=== PATIENT | male | born 1950 | race Caucasian/White ===

== ENCOUNTER 2018-08-08 08:15 | Day surgery (SDC) | payer MEDICARE ==
[~2018-08-08] VITALS: Ht 172.7 cm; Wt 142.0 kg
[~2018-08-08 08:15] MED LIST: ATOR20 PO; DIGO.25 PO; FINA5 PO; FISH OIL 1,0001 EAC1 PO; HYDCHL25 PO; METF500C PO; VERA180ER PO; WARF7.5 PO
--- NOTE | 2018-08-08 10:02 | NUR ---
Ambulatory in Day Surgery History, Chart, Medications and Allergies reviewed before start of procedure.Lungs clear T/O to Auscultation. Patient confirms NPO status and agrees with scheduled surgery. Patient States Post-Procedure ride home has been arranged.
--- NOTE | 2018-08-08 15:04 | NUR ---
Patient up to Ambulate independently. Gait steady. Discharge instructions reviewed with patient. Patient verbalizes understanding. Copy given to patient to take home. Patient States Post-Procedure ride home has been arranged. Discharged via wheelchair to private car for ride home.
== END 2018-08-08 22:50 | disposition home or self-care (01) ==
LOC: ORSCMMR 08:15 → ORD 10:00 → ORSCMMR 22:50
PROVIDERS: Surgery
PROC: 0YU50JZ Supplement Right Inguinal Region with Synthetic Substitute, Open Approach (ICD-10-PCS; principal; 2018-08-08 10:00)
DX: K40.30 Unilateral inguinal hernia, with obstruction, without gangrene, not specified as recurrent (principal); I10 Essential (primary) hypertension; I48.91 Unspecified atrial fibrillation; Z79.01 Long term (current) use of anticoagulants; E11.9 Type 2 diabetes mellitus without complications; E66.01 Morbid (severe) obesity due to excess calories; Z68.42 Body mass index [BMI] 45.0-49.9, adult; Z79.899 Other long term (current) drug therapy
CPT/HCPCS: 82947; C1781; J0690; J1100; J1885; J2370; J2405; J2710; J3010; J7120

== ENCOUNTER 2021-04-20 07:14 | Day surgery (SDC) | payer MEDICARE ==
[~2021-04-20] VITALS: Ht 175.3 cm; Wt 128.7 kg
[~2021-04-20 07:14] MED LIST changes: +TRULICITY0.75 MG/01 SC; +VASCEPA1 G1 PO
--- NOTE | 2021-04-20 07:59 | NUR ---
Ambulatory in Day SurgeryBair Paws warming gown applied. Surgical site prepped with 2% Chlorhexidine cloth wipe. Patient states colon prep results clear. History, Chart, Medications and Allergies reviewed before start of procedure.Lungs clear T/O to Auscultation. Patient confirms NPO status and agrees with scheduled surgery. Pre-Op teaching done. Pt verbalizes understanding. Patient States Post-Procedure ride home has been arranged.
--- NOTE | 2021-04-20 08:34 | NUR ---
04/20/21 0834 Mirtha Salmeron HISTORY,CHART, MEDICATIONS AND ALLERGIES REVIEWED BEFORE START OF PROCEDURE. PATIENT CONFIRMS NPO STATUS AND AGREES WITH SCHEDULED PROCEDURE. 3-LEAD EKG REVIEWED WITH PHYSICIAN PRIOR TO START OF PROCEDURE. MONITOR INTACT WITH CONTINUOUS PULSE OXIMETRY AND INTERMITTENT BP. SUPPLEMENTAL O2 TO BE TITRATED THROUGHOUT PROCEDURE TO MAINTAIN O2 SATURATION ABOVE 90%. PATIENT DETERMINED TO BE ASA APPROPRIATE FOR MODERATE SEDATION PRIOR TO START OF PROCEDURE BY .
--- NOTE | 2021-04-20 09:22 | NUR ---
ARRIVED FROM ENDO 1 TO STEP VSS. ALERT ORIENTED DENIES NEED FOR DRINK
--- NOTE | 2021-04-20 09:30 | NUR ---
ALERT ORITENTED WILL GET DRESSED AT TH TIEM
--- NOTE | 2021-04-20 09:45 | NUR ---
Discharge instructions reviewed with patient. Patient verbalizes understanding. Copy given to patient to take home. Patient States Post-Procedure ride home has been arranged. Discharged via wheelchair to private car for ride home.
== END 2021-04-20 23:01 | disposition home or self-care (01) ==
LOC: ORSCMMR 07:14 → ORSCSDS 08:30 → ORSCMMR 08:30
PROVIDERS: Internal Medicine Gastroenterology
PROC: 0DBM8ZX Excision of Descending Colon, Via Natural or Artificial Opening Endoscopic, Diagnostic (ICD-10-PCS; principal; 2021-04-20 08:30)
PROC: 0DBL8ZX Excision of Transverse Colon, Via Natural or Artificial Opening Endoscopic, Diagnostic (ICD-10-PCS; principal; 2021-04-20 08:30)
PROC: 0DBH8ZX Excision of Cecum, Via Natural or Artificial Opening Endoscopic, Diagnostic (ICD-10-PCS; principal; 2021-04-20 08:30)
PROC: 0DBN8ZX Excision of Sigmoid Colon, Via Natural or Artificial Opening Endoscopic, Diagnostic (ICD-10-PCS; principal; 2021-04-20 08:30)
DX: Z12.11 Encounter for screening for malignant neoplasm of colon (principal); Z86.010 Personal history of colon polyps; Z80.0 Family history of malignant neoplasm of digestive organs; D12.3 Benign neoplasm of transverse colon; D12.0 Benign neoplasm of cecum; D12.4 Benign neoplasm of descending colon; D12.5 Benign neoplasm of sigmoid colon; K64.4 Residual hemorrhoidal skin tags; I48.20 Chronic atrial fibrillation, unspecified; Z79.01 Long term (current) use of anticoagulants; E11.9 Type 2 diabetes mellitus without complications; Z79.84 Long term (current) use of oral hypoglycemic drugs; Z79.899 Other long term (current) drug therapy; E66.01 Morbid (severe) obesity due to excess calories; Z68.41 Body mass index [BMI] 40.0-44.9, adult
CPT/HCPCS: 82947; 88305; J2250; J3010; J7120

== ENCOUNTER 2023-03-27 10:22 | Inpatient (IN) | payer MEDICARE ==
[2023-03-27] VITALS (24 sets, daily range): BP systolic 139–189; BP diastolic 55–170
[~2023-03-27] VITALS: Ht 175.3 cm; Wt 112.7 kg
[2023-03-27 10:50] LABS: BASOPHILS ABSOLUTE AUTO 0.05 K/mm3 (0.00-0.23); BASOPHILS PERCENT AUTO 0 % (0-2); EOSINOPHILS ABSOLUTE AUTO 0.05 K/mm3 (0.00-0.68); EOSINOPHILS PERCENT AUTO 0 % (0-6); Hematocrit 45.3 % (37.0-53.0); Hemoglobin 15.6 g/dL (13.5-17.5); IMMATURE GRAN ABSOLUTE AUTO 0.04 K/mm3 (0.00-0.10); IMMATURE GRAN PERCENT AUTO 0 % (0-1); LYMPHOCYTES ABSOLUTE AUTO 1.86 K/mm3 (0.84-5.20); LYMPHOCYTES PERCENT AUTO 15 % (21-46); MONOCYTES ABSOLUTE AUTO 1.09 K/mm3 (0.16-1.47); MONOCYTES PERCENT AUTO 9 % (4-13); Mean Corpuscular HGB 29.9 pg (26.0-34.0); Mean Corpuscular HGB Conc 34.4 g/dL (31.5-36.5); Mean Corpuscular Volume 87 fL (80-100); Mean Platelet Volume 11.2 fL (9.1-12.4); NEUTROPHILS ABSOLUTE AUTO 9.21 K/mm3 (1.96-9.15); NEUTROPHILS PERCENT AUTO 75 % (41-73); Platelet Count 288 K/mm3 (150-400); RDW Coefficient Variation 13.5 % (11.7-14.2); RDW Standard Deviation 42.5 fL (35.1-46.3); Red Blood Cell Count 5.22 M/mm3 (4.30-5.90)
[2023-03-27 11:10] LABS: International Normalized Ratio 2.92; Prothrombin Time Results 28.9 Sec (9.7-11.5)
[2023-03-27 11:16] LABS: Albumin, Blood 3.8 g/dL (3.4-5.0); Albumin/Globulin Ratio 1.1 (0.8-1.8); Bilirubin, Total 2.4 mg/dL (0.1-1.0); Bun/Creatinine Ratio 16.8 (12.0-20.0); Calcium, Blood 9.6 mg/dL (8.5-10.1); Creatinine, Blood 1.19 mg/dL (0.60-1.20); Globulin, Blood 3.5 g/dL (2.2-4.0); Potassium, Blood 3.7 mmol/L (3.5-5.5); Total Protein, Blood 7.3 g/dL (6.4-8.2)
[2023-03-27] MEDS ORDERED: OZEMPIC1 MG/0.72 SC (11:24)
[2023-03-27] MEDS ORDERED: ROSUVASTATIN CA10 MG PO (11:25)
[2023-03-27] MEDS ORDERED: CHLO25B PO (11:26)
[2023-03-27] MEDS ORDERED: FARXIGA10 MG PO (11:26)
[2023-03-27 11:27] LABS: Digoxin (Lanoxin) 1.13 ug/mL (0.80-2.00)
[2023-03-27] MEDS ORDERED: OMEGA-3 FISH O1 EAC6 PO (14:31)
--- NOTE | 2023-03-27 15:00 | NUR ---
Patient arrived via wheelchair post report from ER. He was alert and oriented and ios able to communicate his needs. He transferred from chair to PCU 6 bed with minimal problems and denied any dizziness. He is on RA and sats >90%. He is independent in bed with positioning.Patients rate 28-37 and systolic 150-160's and asymptomatic. Patient has atropinePRN.
--- NOTE | 2023-03-27 17:07 | NUR ---
Patient remains asymptomatic with rates 18-36, les than 20 sustained only for several seconds. Gave Atropine per MAR PRN and rate maxed at 37. Patient remains on RA and sats >90%, denies any SOB. Straight cathed patient shortly after while resident in room. Patient stated he really needed to go and unable, striaght cath and got 675 clear yellow urine. Contacted residents for medication and patient pacing and unclear with perimeters for med and or pacing and they stated cardiology been notified and when cardiology called they would come to see patient after current case.
--- NOTE | 2023-03-27 18:30 | NUR ---
Patients rate continues to be 20-40 with increased PVC's and now patient stating feeling realy bad and dizzy. Called Dr Springer and told him patient is now symptomatic and he ordered transfer to ICU and start Dopamine. Notified patient of transfer. Patient states difficult speech and weakness, tremors. systolic 150's
--- NOTE | 2023-03-27 19:29 | NUR ---
Gave report to Marnie ZENDEJAS and transferred patient to ICU 13. Dr Schneider came to see patient and Dr olmos on phone while Dr Schneider in room
[2023-03-27 21:39] LABS: Source, Urine Foley catheter
[2023-03-27 21:43] LABS: Bilirubin, Urine Neg (Neg); Blood, Urine 4+ (Neg); Glucose Qualitative, Urine 4+ (Neg); Ketones, Urine 1+ (Neg); Leukocyte Esterase, Urine 1+ (Neg); Nitrite, Urine Neg (Neg); Protein, Urine 1+ (Neg); Specific Gravity, Urine 1.015 (1.003-1.022); Urobilinogen, Urine NORM (Normal)
[2023-03-27 21:59] LABS: Appearance, Urine Clear (Clear); Color, Urine Yellow (P-Yellow)
[2023-03-27 22:01] LABS: Bacteria Mod /hpf; Squamous Epithelial Cells Not Seen /hpf (Few)
--- NOTE | 2023-03-27 22:46 | NUR ---
ASSUMED CARE OF PATIENT AT 1700. RECEIVED REPORT FROM DAVE ZENDEJAS. PATIENT IS ALERT AND ORIENTED TO PERSON, PLACE, AND SITUATION BUT IS UNABLE TO VERBALIZE DATE/TIME. HE IS ABLE TO FOLLOW VERBAL COMMANDS AND MAKES PURPOSEFUL MOVEMENTS. DENIES ANY PAIN AT THIS TIME. HR IN 40'S-50'S UPON ASSUMPTION OF CARE. BP ELEVATED AT 172/63. O2 SATURATION 94% ON RA. PATIENT MAKES FREQUENT MENTION OF NEEDING TO GO TO THE BATHROOM BUT IS UNABLE TO VOID INTO BEDSIDE URINAL. PIV TO LAC INFUSING DOPAMINE AT 2MCG/KG/MIN. SEE SHIFT ASSES FOR FULL ASSESSMENT DETAILS.
[2023-03-27 22:55] LABS: International Normalized Ratio 2.86; Prothrombin Time Results 28.3 Sec (9.7-11.5)
[2023-03-28] VITALS (86 sets, daily range): BP systolic 105–201; BP diastolic 46–125
[2023-03-28 03:40] LABS: BASOPHILS ABSOLUTE AUTO 0.04 K/mm3 (0.00-0.23); BASOPHILS PERCENT AUTO 0 % (0-2); EOSINOPHILS ABSOLUTE AUTO 0.05 K/mm3 (0.00-0.68); EOSINOPHILS PERCENT AUTO 0 % (0-6); Hematocrit 42.8 % (37.0-53.0); Hemoglobin 14.5 g/dL (13.5-17.5); IMMATURE GRAN ABSOLUTE AUTO 0.06 K/mm3 (0.00-0.10); IMMATURE GRAN PERCENT AUTO 0 % (0-1); LYMPHOCYTES ABSOLUTE AUTO 1.55 K/mm3 (0.84-5.20); LYMPHOCYTES PERCENT AUTO 10 % (21-46); MONOCYTES ABSOLUTE AUTO 1.48 K/mm3 (0.16-1.47); MONOCYTES PERCENT AUTO 10 % (4-13); Mean Corpuscular HGB 29.4 pg (26.0-34.0); Mean Corpuscular HGB Conc 33.9 g/dL (31.5-36.5); Mean Corpuscular Volume 87 fL (80-100); Mean Platelet Volume 11.3 fL (9.1-12.4); NEUTROPHILS ABSOLUTE AUTO 12.11 K/mm3 (1.96-9.15); NEUTROPHILS PERCENT AUTO 79 % (41-73); Platelet Count 283 K/mm3 (150-400); RDW Coefficient Variation 13.6 % (11.7-14.2); RDW Standard Deviation 42.9 fL (35.1-46.3); Red Blood Cell Count 4.93 M/mm3 (4.30-5.90); White Blood Cell Count 15.29 K/mm3 (4.00-11.30)
[2023-03-28 03:59] LABS: Bun/Creatinine Ratio 17.6 (12.0-20.0); Calcium, Blood 9.3 mg/dL (8.5-10.1); Creatinine, Blood 1.08 mg/dL (0.60-1.20); Potassium, Blood 3.6 mmol/L (3.5-5.5)
--- NOTE | 2023-03-28 06:25 | NUR ---
SHIFT SUMMARY. PATIENT A&0 X 3 HE WAS UNABLE TO VERBALIZE DATE AND TIME. HE COULD ANSWER QUESTIONS, FOLLOW VERBAL COMMANDS, AND MAKE PURPOSEFUL MOVEMENTS, BUT ALSO HAD PERIODS OF WORD SEARCHING AND WOULD BEGIN TELLING STORIES UNRELATED TO CURRENT CONVERSATION INTERMITTENTLY THROUGHOUT THE SHIFT. IDIOVENTRICULAR - ACCELERATED IDIOVENTRICULAR RHYTHM ON MONITOR, HR IN 30'S-40'S. ZOLL AND ATROPTINE AT BEDSIDE. SBP IN 160'S-190'S. TWO DOSES OF IV HYDRALAZINE GIVEN. PATIENT IS ON ROOM AIR WITH O2 SATURATIONS >92%. NO BM THIS SHIFT. WHEN PATIENT WOULD ATTEMPT TO URINATE HE WOULD ERIKA DOWN, SO VASQUEZ WAS PLACED. DRAINING CLEAR YELLOW URINE AT START OF SHIFT, WHICH HAS BECOME DARKER TOWARDS THE END OF THE SHIFT AND IS MALODOROUS. UCX PENDING. PIV TO LAC THAT FLUSHES WELL, BUT DOES NOT DRAW. PG TO DERICK THAT DRAWS AND FLUSHES WELL. WILL CONTINUE TO MONITOR AND REPORT TO ONCOMING NURSE.
[2023-03-28 07:01] LABS: International Normalized Ratio 2.63; Prothrombin Time Results 26.1 Sec (9.7-11.5)
--- NOTE | 2023-03-28 08:10 | NUR ---
INITIAL ASSESSMENT PATIENT ALERT AND ORIENTED X 4, AFEBRILE. PATIENT DENIES PAIN. PATIENT KOTLIK. PATIENT UNSTEADY ON FEET AND STATES THAT HE FEELS DIZZY AT TIMES. PATIENT SATTING 90% AND GREATER ON RA. LUNGS CLEAR T/O. PATIENT IN A. FIB, HR IN THE 30S. SBP 210. PRN HYDRALAZINE GIVEN. SBP NOW IN THE 170S. SCDS IN PLACE. GI WNL. VASQUEZ IN PLACE DRAINING DARK YELLOW COLORED URINE. SKIN APPEARS WNL. 1+ EDEMA NOTED TO BLES. IVS SALINE LOCKED. BED LOW, CALL LIGHT IN REACH.
--- NOTE | 2023-03-28 09:03 | NUR ---
PATIENT HAD 5.40 SECOND PAUSE AT 0854. PATIENT REPORTS HE FELT LIGHTHEADED WHEN PAUSE OCCURRED. DR. LAZARO CALLED AND NOTIFIED.
--- NOTE | 2023-03-28 12:05 | NUR ---
PATIENT AFEBRILE. HR 30S TO 40S. SBP IN THE 150S. PATIENT HAD 5.40 SECOND PAUSE THIS AM; PATIENT FELT "DIZZY SHORTLY" DURING THE PAUSE. NO COMPLAINTS OF PAIN. NO OTHER ACUTE CHANGES TO NOTE ON AT THIS TIME.
--- NOTE | 2023-03-28 16:00 | NUR ---
PATIENT AFEBRILE. HR 30S TO 40S. SBP 140S TO 150S. NO CHANGES TO HR WITH AMBULATION IN ROOM. PATIENT BACK IN BED. BED LOW, CALL LIGHT IN REACH. NO COMPLAINTS AT THIS TIME.
--- NOTE | 2023-03-28 18:30 | NUR ---
SHIFT SUMMARY PATIENT REMAINED ALERT AND ORIENTED X 4, AFEBRILE. PATIENT HAD NO COMPLAINTS OF PAIN THIS SHIFT. PATIENT SLIGHTLY UNSTEADY ON FEET. 1 PERSON ASSIST WITH FWW. PATIENT AMBULATED IN ROOM. HR DID NOT CHANGE WITH AMBULATION. PATIENT REMAINED TONTO APACHE. PATIENT REMAINED SATTING 90% AND GREATER ON RA. PATIENT REMAINED IN A. FIB WITH OCCASIONAL VENTRICULAR ESCAPE RHYTHM. PATIENT HAD 5.4 SECOND PAUSE THIS AM. HR RANGED FROM 27 TO 40S MOSTLY. SBP LOW 100S TO 201. PATIENT STARTED ON SCHEDULED HYDROCHLOROTHIAZIDE THIS SHIFT AND WAS GIVEN PRN HYDRALAZINE FOR HTN. SCDS APPLIED THIS SHIFT. NO BM THIS SHIFT. PATIENT HAD GOOD APPETITE. 1000 MLS OF URINE OUTPUT FROM VASQUEZ. 1+ EDEMA REMAINS TO BLES. IVS REMAINED SALINE LOCKED. ZOLL REMAINS ATTACHED TO PATIENT. ATROPINE REMAINS AT BEDSIDE. PATIENT ASSISTED WITH CHAIR BATH THIS SHIFT. ECHO PERFORMED THIS SHIFT. PATIENT TO BE NPO AT MIDNIGHT FOR POSSIBLE PACEMAKER PLACEMENT TOMORROW. BLOOD SUGARS 157 AND 125 THIS SHIFT. PATIENT RESTING IN BED QUIETLY WITH NO COMPLAINTS AT THIS TIME. BED LOW, CALL LIGHT IN REACH. REPORT WILL BE GIVEN TO ASSUMING DOPER OPERATOR NURSE SHORTLY.
--- NOTE | 2023-03-28 18:31 | NUR ---
Review with patient his symptoms and needs. He ahs been feeling weak and dizzy. Reports a complete syncopal episode with a fall. pt on several medications with possible increased side effects. He is mostly being managed by his primary physician. 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 we reviewed his recent weight loss and change in condition he does have a urologist he has not seen a nephrolgist. Discussed needing more care. He did see an orthopedist. pt very red and flushed on several areas of his body. Pt does no monitor his daily weights. Review of his poa and advance directives and documents. Will discuss with pt further. He sis scheduled for pacemaker tomorrow.
--- NOTE | 2023-03-28 19:02 | NUR ---
REPORT GIVEN TO SENIOR MECHANICAL PROJECT ENGINEER NURSE.
--- NOTE | 2023-03-28 19:13 | NUR ---
ASSUMED CARE OF PATIENT AT 1900. RECEIVED REPORT FROM CRISTIANA SANCHEZ. VSS STABLE AND NO ACUTE NEEDS IDENTIFIED AT THIS TIME. SEE SHIFT ASSESS FOR FULL ASSESSMENT DETAILS.
[2023-03-29] VITALS (35 sets, daily range): BP systolic 110–176; BP diastolic 46–143
[2023-03-29 03:53] LABS: BASOPHILS ABSOLUTE AUTO 0.04 K/mm3 (0.00-0.23); BASOPHILS PERCENT AUTO 0 % (0-2); EOSINOPHILS ABSOLUTE AUTO 0.09 K/mm3 (0.00-0.68); EOSINOPHILS PERCENT AUTO 1 % (0-6); Hematocrit 40.6 % (37.0-53.0); IMMATURE GRAN ABSOLUTE AUTO 0.04 K/mm3 (0.00-0.10); IMMATURE GRAN PERCENT AUTO 0 % (0-1); LYMPHOCYTES PERCENT AUTO 15 % (21-46); MONOCYTES ABSOLUTE AUTO 1.47 K/mm3 (0.16-1.47); MONOCYTES PERCENT AUTO 12 % (4-13); Mean Corpuscular HGB 30.1 pg (26.0-34.0); Mean Corpuscular HGB Conc 34.5 g/dL (31.5-36.5); Mean Corpuscular Volume 87 fL (80-100); Mean Platelet Volume 10.9 fL (9.1-12.4); NEUTROPHILS PERCENT AUTO 72 % (41-73); Platelet Count 260 K/mm3 (150-400); RDW Standard Deviation 44.1 fL (35.1-46.3); Red Blood Cell Count 4.65 M/mm3 (4.30-5.90); White Blood Cell Count 12.64 K/mm3 (4.00-11.30)
[2023-03-29 04:17] LABS: International Normalized Ratio 2.46; Prothrombin Time Results 24.5 Sec (9.7-11.5)
[2023-03-29 04:29] LABS: Anion Gap 5 mmol/L (6-16); Blood Urea Nitrogen 20 mg/dL (8-24); Bun/Creatinine Ratio 16.3 (12.0-20.0); CO2, Blood 31 mmol/L (21-32); Chloride, Blood 105 mmol/L (98-108); Creatinine, Blood 1.23 mg/dL (0.60-1.20); Digoxin (Lanoxin) 0.99 ug/mL (0.80-2.00); Glomerular Filtration Rate 62 (60-); Glucose, Blood 137 mg/dL (70-99); Potassium, Blood 3.8 mmol/L (3.5-5.5); Sodium, Blood 141 mmol/L (136-145)
--- NOTE | 2023-03-29 05:58 | NUR ---
SHIFT SUMMARY PATIENT REMAINED ALERT AND ORIENTED X 4 THROUGHOUT THE ENTIRETY OF THE SHIFT. HE WAS ABLE TO FOLLOW VERBAL COMMANDS AND MAKE PURPOSEFUL MOVEMENTS. MONITOR SHOWED AFIB RHYTHM WITH OCCASIONAL PAUSES, WHICH PATIENT REPORTS HE WAS ASYMPTOMATIC DURING THESE EPISODES. HR RANGED FORM 26-40'S. SBP IN 120'S-150'S. PATIENT REMAINED ON ROOM AIR WITH O2 SATURATIONS IN 90'S. VASQUEZ REMAINS IN PLACE DRAINING DARK YELLOW URINE TO GRAVITY. HE HAS BEEN NPO SINCE MIDNIGHT IN PREPARATION FOR POTENTIAL PACEMAKER PLACEMENT TODAY. PIV TO LAC FLUSHES WELL, DOES NOT DRAW. PG TO DERICK DRAWS AND FLUSHES WELL. PT REMAINS SALINE LOCKED. ZOLL AT BEDSIDE AND ATTACHED TO PATIENT. ATROPINE AT BEDSIDE. WILL CONTINUE TO MONITOR AND REPORT TO ONCOMING NURSE.
[2023-03-29 08:48] LABS: International Normalized Ratio 2.36; Prothrombin Time Results 23.6 Sec (9.7-11.5)
--- NOTE | 2023-03-29 18:17 | NUR ---
SUMMARY PT RESTING IN BED. A/O X4. DENIES PAIN. BRADYCARDIC WITH PAUSES. PAUSES HAVE BEEN 2-[address] LAZARO WANTS TO KNOW IF THEY ARE LONGER THAN 5 SECONDS. PT IS ASYMPTOMATIC WITH PAUSES AND BRADYCARDIA. OOB ONCE TODAY WITHOUT DIZZINESS. PACEMAKER PROCEDUREE POSTPONED UNTIL TOMORROW. NO SIGN OF DISTRESS, USES CALL LIGHT APPROPRIATELY.
--- NOTE | 2023-03-29 19:31 | NUR ---
ASSUMED CARE OF PATIENT AT 1900. REPORT RECEIVED FROM CRISTIANA LINK. VSS AND NOT ACUTE NEEDS IDENTIFIED AT THIS TIME. SEE SHIFT ASSESS FOR FULL ASSESSMENT DETAILS.
[2023-03-30] VITALS (18 sets, daily range): BP systolic 124–175; BP diastolic 45–136
[2023-03-30 03:24] LABS: BASOPHILS ABSOLUTE AUTO 0.05 K/mm3 (0.00-0.23); BASOPHILS PERCENT AUTO 0 % (0-2); EOSINOPHILS ABSOLUTE AUTO 0.13 K/mm3 (0.00-0.68); EOSINOPHILS PERCENT AUTO 1 % (0-6); Hematocrit 42.6 % (37.0-53.0); Hemoglobin 14.2 g/dL (13.5-17.5); IMMATURE GRAN ABSOLUTE AUTO 0.07 K/mm3 (0.00-0.10); IMMATURE GRAN PERCENT AUTO 1 % (0-1); LYMPHOCYTES PERCENT AUTO 14 % (21-46); MONOCYTES ABSOLUTE AUTO 1.25 K/mm3 (0.16-1.47); MONOCYTES PERCENT AUTO 10 % (4-13); Mean Corpuscular HGB 29.2 pg (26.0-34.0); Mean Corpuscular HGB Conc 33.3 g/dL (31.5-36.5); Mean Corpuscular Volume 88 fL (80-100); Mean Platelet Volume 10.7 fL (9.1-12.4); NEUTROPHILS ABSOLUTE AUTO 9.39 K/mm3 (1.96-9.15); NEUTROPHILS PERCENT AUTO 75 % (41-73); Platelet Count 264 K/mm3 (150-400); RDW Coefficient Variation 13.6 % (11.7-14.2); RDW Standard Deviation 43.8 fL (35.1-46.3); Red Blood Cell Count 4.86 M/mm3 (4.30-5.90); White Blood Cell Count 12.59 K/mm3 (4.00-11.30)
[2023-03-30 03:40] LABS: International Normalized Ratio 2.01; Prothrombin Time Results 20.3 Sec (9.7-11.5)
[2023-03-30 04:18] LABS: Anion Gap 3 mmol/L (6-16); Blood Urea Nitrogen 18 mg/dL (8-24); CO2, Blood 31 mmol/L (21-32); Calcium, Blood 9.1 mg/dL (8.5-10.1); Chloride, Blood 105 mmol/L (98-108); Digoxin (Lanoxin) 0.72 ug/mL (0.80-2.00); Glomerular Filtration Rate 79 (60-); Glucose, Blood 133 mg/dL (70-99); Potassium, Blood 3.5 mmol/L (3.5-5.5); Sodium, Blood 139 mmol/L (136-145)
--- NOTE | 2023-03-30 06:00 | NUR ---
SHIFT SUMMARY. PATIENT REMAINED ALERT AND ORIENTED X 4 THROUGHOUT ENTIRETY OF SHIFT. IN THE MIDDLE OF THE NIGHT HE ATTEMPTED TO GET OUT OF BED STATING HE NEEDED TO USE THE RESTROOM, BUT WAS QUICKLY REDIRECTABLE AFTER HE WAS REMINDED THAT HE HAD A VASQUEZ IN PLACE. PATIENT REMAINED AFEBRILE AND DENIED ANY PAIN. SINUS ERIKA AND ATRIAL FIBRILLATION SHOWN ON MONITOR. HR IN 30'S-50'S. BP STABLE WITH SBP IN 130'S-160'S. PATIENT REMAINED ON ROOM AIR THROUGH THE ENTIRETY OF THE SHIFT WITH O2 SATURATIONS IN 90'S. PATIENT HAS BEEN NPO SINCE MIDNIGHT IN PREPARATION FOR POSSIBLE PACEMAKER PLACEMENT TODAY. NO BM DURING GAS STATION SUPERVISOR. VASQUEZ IS IN PLACE DRAINING DARK YELLOW URINE TO GRAVITY. POWERGLIDE TO DERICK DRAWS AND FLUSHES WELL. PIV TO LAC FLUSHES BUT DOES NOT DRAW. WILL CONTINUE TO MONITOR AND REPORT TO ONCOMING NURSE.
[2023-03-30 09:35] LABS: International Normalized Ratio 1.96; Prothrombin Time Results 19.8 Sec (9.7-11.5)
[2023-03-30] MEDS ORDERED: LISI5 PO (13:30)
== END 2023-03-30 13:47 | disposition home or self-care (01) | DRG 309 ==
LOC: ER 10:22 → ICUE 10:23 → PCU 10:23 → ICUE 19:13
PROVIDERS: Emergency Medicine; Family Medicine; Internal Medicine; Internal Medicine Cardiovascular Disease; Physician Assistant; Student in an Organized Health Care Education/Training Program; ADMIT Hospitalist
PROC: 30283B1 Transfusion of Nonautologous 4-Factor Prothrombin Complex Concentrate into Vein, Percutaneous Approach (ICD-10-PCS; principal; 2023-03-27)
PROC: 0T9B70Z Drainage of Bladder with Drainage Device, Via Natural or Artificial Opening (ICD-10-PCS; 2023-03-28)
DX: I44.2 Atrioventricular block, complete (principal); R47.01 Aphasia; E11.9 Type 2 diabetes mellitus without complications; I48.21 Permanent atrial fibrillation; I10 Essential (primary) hypertension; E78.5 Hyperlipidemia, unspecified; R42 Dizziness and giddiness; E66.9 Obesity, unspecified; D72.829 Elevated white blood cell count, unspecified; N40.1 Benign prostatic hyperplasia with lower urinary tract symptoms; R33.8 Other retention of urine; I16.0 Hypertensive urgency; D32.0 Benign neoplasm of cerebral meninges; Z79.899 Other long term (current) drug therapy; Z86.79 Personal history of other diseases of the circulatory system; Z68.37 Body mass index [BMI] 37.0-37.9, adult; Z79.01 Long term (current) use of anticoagulants; Z90.89 Acquired absence of other organs; Z98.890 Other specified postprocedural states; Z79.84 Long term (current) use of oral hypoglycemic drugs
CPT/HCPCS: 51702; 70450; 80048; 80053; 80162; 81001; 82947; 83735; 84443; 85025; 85610; 86900; 86901; 87086; 93005; 93010; 93246; 96374; 96375; 96376; 99285-25; A9270; C1751; C8929; G0378; J0360; J0461; J1265; J7050; Q9957

== ENCOUNTER → 2023-03-31 | Outpatient (CLI) | payer MEDICARE ==
[~2023-03-31] MED LIST changes: +CHLO25B PO; +FARXIGA10 MG PO; +LISI5 PO; +OMEGA-3 FISH O1 EAC6 PO; +OZEMPIC1 MG/0.72 SC; +ROSUVASTATIN CA10 MG PO
[2023-03-31 09:48] LABS: International Normalized Ratio 1.57; Prothrombin Time Results 16.1 Sec (9.7-11.5)
== END ==
LOC: LAB SHORT 09:10 → LAB 09:10
PROVIDERS: Student in an Organized Health Care Education/Training Program
DX: Z51.81 Encounter for therapeutic drug level monitoring (principal); I48.0 Paroxysmal atrial fibrillation
CPT/HCPCS: 85610

== ENCOUNTER 2023-04-26 10:16 | Observation (INO) | payer MEDICARE ==
[~2023-04-26] VITALS: Ht 175.3 cm; Wt 106.8 kg
[2023-04-26] VITALS (7 sets, daily range): BP systolic 112–158; BP diastolic 74–90
[2023-04-26 10:58] LABS: BASOPHILS ABSOLUTE AUTO 0.03 K/mm3 (0.00-0.23); BASOPHILS PERCENT AUTO 0 % (0-2); EOSINOPHILS ABSOLUTE AUTO 0.02 K/mm3 (0.00-0.68); EOSINOPHILS PERCENT AUTO 0 % (0-6); Hematocrit 48.2 % (37.0-53.0); Hemoglobin 16.5 g/dL (13.5-17.5); IMMATURE GRAN ABSOLUTE AUTO 0.02 K/mm3 (0.00-0.10); IMMATURE GRAN PERCENT AUTO 0 % (0-1); LYMPHOCYTES ABSOLUTE AUTO 1.65 K/mm3 (0.84-5.20); LYMPHOCYTES PERCENT AUTO 16 % (21-46); MONOCYTES ABSOLUTE AUTO 0.65 K/mm3 (0.16-1.47); MONOCYTES PERCENT AUTO 6 % (4-13); Mean Corpuscular HGB 29.2 pg (26.0-34.0); Mean Corpuscular HGB Conc 34.2 g/dL (31.5-36.5); Mean Corpuscular Volume 85 fL (80-100); Mean Platelet Volume 11.2 fL (9.1-12.4); NEUTROPHILS ABSOLUTE AUTO 7.98 K/mm3 (1.96-9.15); NEUTROPHILS PERCENT AUTO 77 % (41-73); Platelet Count 260 K/mm3 (150-400); RDW Coefficient Variation 13.2 % (11.7-14.2); RDW Standard Deviation 40.8 fL (35.1-46.3); Red Blood Cell Count 5.65 M/mm3 (4.30-5.90); White Blood Cell Count 10.35 K/mm3 (4.00-11.30)
[2023-04-26 11:18] LABS: Albumin, Blood 4.4 g/dL (3.4-5.0); Albumin/Globulin Ratio 1.2 (0.8-1.8); Bilirubin, Total 2.4 mg/dL (0.1-1.0); Bun/Creatinine Ratio 17.4 (12.0-20.0); Calcium, Blood 10.1 mg/dL (8.5-10.1); Creatinine, Blood 1.15 mg/dL (0.60-1.20); Globulin, Blood 3.6 g/dL (2.2-4.0); Potassium, Blood 3.7 mmol/L (3.5-5.5)
[2023-04-26 11:29] LABS: International Normalized Ratio 2.36; Prothrombin Time Results 23.6 Sec (9.7-11.5)
--- NOTE | 2023-04-26 15:40 | NUR ---
PT A&OX4, ANSWERS QUESTIONS APPROPRIATLY AND ABLE TO MAKE NEEDS KNOWN. ON RA MAINTAINING 02 SATURATION ABOVE 93%, PT DENIES SOB, LUNG SOUNDS CLEAR BILATERALLY. HR AFIB 70'S-90'S, PT DENIES CHEST PAIN/PRESSURE. PT WAS CALLED TO COME IN THIS MORNING BY CARDIOLOGY BECAUSE OF RESULTS FOUND FROM THE ZIO PATCH HE RECENTLY WORE. LUMBER STICKER CAME AND SPOKE WITH PT AND PT IS DUE TO HAVE PACEMAKER PLACED TOMORROW. PT IS NOW EATING, BUT WILL BE NPO AT MIDNIGHT. PT IS RESTING IN BED AND WATCHING TV, CALL LIGHT WITHIN REACH.
--- NOTE | 2023-04-26 18:55 | NUR ---
SHIFT SUMMARY NO ACUTE CHANGES, SEE PREVIOUS NOTE. PT RESTING IN BED WATCHING TV, CALL LIGHT WITHIN REACH.
[2023-04-27] VITALS (15 sets, daily range): BP systolic 82–137; BP diastolic 59–98
--- NOTE | 2023-04-27 05:27 | NUR ---
SHIFT SUMMARY ASSUMED CARE OF PT AT 1900. PT IS A/OX4. HEART SOUNDS IRREGULAR. PT IN AFIB T/O THE NIGHT. ASYMPTOMATIC. INDEPENDENT IN ROOM. NPO SINCE MIDNIGHT.
[2023-04-27 09:06] LABS: International Normalized Ratio 2.23; Prothrombin Time Results 22.4 Sec (9.7-11.5)
--- NOTE | 2023-04-27 09:54 | NUR ---
PT IS ALERT AND ORIENTED X 4, ANSWERS QUESTIONS APPROPRATELY AND ABLE TO MAKE NEEDS KNOWN. PT ON RA AND MAINTAINING O2 SATURATION ABOVE 93%, PT DENIES SOB. PT HR 80'S-90'S AFIB/BBB, DENIES CHEST PAIN/PRESSURE, PT DUE TO HAVE PACEMAKER PLACED TODAY. PT IS NPO DUE TO AWAITING PACEMAKER PLACEMENT. PT DENIES PAIN. PT RESTING IN BED, CALL LIGHT WITHIN REACH.
--- NOTE | 2023-04-27 11:52 | NUR ---
AROUND [id number] PT WAS TAKEN DOWN TO HAVE PACEMAKER PLACED.
--- NOTE | 2023-04-27 12:34 | NUR ---
Pt arrived to PCU 19 in wheelchair post pacemaker insertion. He is awake, alert and oriented and pleasantly conversant. No c/o pain nor discomfort. He is sitting on side of bed eating lunch, and talking with his family who are visiting here. Left chest wall surgical site noted to have intact clean and dry non adherent dressing with tegederm covering it. The pt has a tendency to move his left arm, so arm immobilizer was placed in order to act as a reminder to him. Pt was given post pacer instructions. He is cheerful. Atrial fibrillation rate 88 bpm noted by telemetry monitoring.
--- NOTE | 2023-04-27 17:39 | NUR ---
SHIFT SUMMARY PT RETURNED FROM PACER PLACEMENT AROUND 1200. POST VITALS ALL STABLE. PT DENIES PAIN, JUST SLIGHT SORENESS OF SITE. COMBINE OPERATOR WAS IN TO SPEAK WITH PT AFTER PROCEDURE. PT REQUESTED TO STAY THE NIGHT IN THE HOSPITAL SO HE COULD FIGURE OUT WHO IS TAKING HIM HOME TOMORROW AND WHO WILL DRIVE HIS TRUCK HOME. PT HAS IMMOBILIZER IN PLACE, ICE PACK ON SURGICAL SITE. PT JUST FINISHED DINNER, RELAXING IN BED WATCHING TV, CALL LIGHT WITHIN REACH.
[2023-04-28 03:04] VITALS: BP 110/71
[2023-04-28 04:31] LABS: International Normalized Ratio 1.8; Prothrombin Time Results 18.3 Sec (9.7-11.5)
--- NOTE | 2023-04-28 05:08 | NUR ---
SHIFT SUMMARY PT A/OX4 AND COOPERATIVE OF CARE. PT ABLE TO EXPRESS NEEDS AND CALLS APPROPIATE. PT VSS THROUGHOUT SHIFT WITH O2 SATS IN THE 90'S ON RA. NO REPORT OF CHSET PAIN/PRESSURE THROUGHOUT SHIFT. NO REPORT OF SOB/DYSPNEA THROUGHOUT SHIFT.PT PACER SITE C/D/I. SLING IN PLACE. PT SBA TO TOILET, REMEMBERS NOT TO USE HIS LEFT ARM WHEN GETTING UP. PT SLEPT FOR BRIEF PERIODS THROUGHOUT SHIFT. PT REPORTS TENDERNESS AT PACER SITE, TREATING WITH ICE PACK.
[2023-04-28 07:32] VITALS: BP 120/84
[2023-04-28] MEDS ORDERED: VERA240ER PO (09:11)
--- NOTE | 2023-04-28 10:11 | NUR ---
UPDATE DISCHARGE INSTRUCTIONS PROVIDED TO PT. PT EDUCATED ON MEDICATION CHANGES. ALL QUESTIONS ANSWERED. PT AWAITING RIDE AND WILL BE TAKEN OUT BY WC
== END 2023-04-28 10:42 | disposition home or self-care (01) ==
LOC: ER 10:16 → PCU 10:17
PROVIDERS: Emergency Medicine; Hospitalist; Internal Medicine Cardiovascular Disease; Physician Assistant; ADMIT Family Medicine Adult Medicine
DX: I49.5 Sick sinus syndrome (principal); I10 Essential (primary) hypertension; E11.9 Type 2 diabetes mellitus without complications; I48.20 Chronic atrial fibrillation, unspecified; D32.0 Benign neoplasm of cerebral meninges; E78.5 Hyperlipidemia, unspecified; Z66 Do not resuscitate; I47.20 Ventricular tachycardia, unspecified
CPT/HCPCS: 33207; 36415; 71046; 80053; 82947; 83735; 85025; 85610; 93005; 93010; 99152; 99153; 99285-25; A9270; C1786; C1894; C1898; G0378; J0690; J1644; J2250; J3010; J7030; J7040; Q9967